=== PATIENT | female | born 1990 | race Two or more races ===

== ENCOUNTER 2016-10-16 01:09 | Emergency (ER) | payer MEDICAID ==
[~2016-10-16] VITALS: Ht 157.5 cm; Wt 59.4 kg
--- NOTE | 2016-10-16 01:33 | NUR ---
Patient discharged to home in stable conditon. Written and verbal after care instructions given. Patient verbalizes understanding of instructions. Ambulated form ER with stable gait. All belongings with patient.
[2016-10-16 01:34] VITALS: BP 104/69
== END 2016-10-16 01:35 | disposition home or self-care (01) ==
LOC: ER 01:19
DX: R21 Rash and other nonspecific skin eruption (principal); F10.20 Alcohol dependence, uncomplicated; F17.200 Nicotine dependence, unspecified, uncomplicated
CPT/HCPCS: A4663